=== PATIENT | male | born 1980 | race Hispanic/Latino ===

== ENCOUNTER 2019-01-08 06:39 | Outpatient (CLI) | payer OTHER ==
--- NOTE | 2019-01-08 07:48 | ULT ---
GALLBLADDER ULTRASOUND: HISTORY: Right upper quadrant pain. FINDINGS: Real-time imaging of the right upper quadrant demonstrates some minimal sludge within the gallbladder . No stones. No gallbladder wall thickening. The common duct is in the 6-7 mm range. No intrahepa tic ductal dilatation seen. Visualized liver parenchyma shows no focal findings. The right kidney i s normal in size and not obstructed. IMPRESSION: Minimal gallbladder sludge with a borderline-size common duct. POS: [facility]
== END 2019-01-08 06:40 | disposition home or self-care (01) ==
LOC: BICULT 06:39
PROVIDERS: ATTEND Family Medicine
DX: K82.8 Other specified diseases of gallbladder (principal); R10.13 Epigastric pain
CPT/HCPCS: 76705

== ENCOUNTER 2025-06-18 16:05 | Emergency (ER) | payer SELFPAY ==
[~2025-06-18 16:05] MED LIST: Iopamidol-370 76% 500 ML MDV (1 ML CHARGE) ONE
[2025-06-18 19:38] LABS: #Basophils 0.03 10x3/uL (0.0-0.2); #Eosinophils 0.08 10x3/uL (0.0-0.7); #Monocytes 0.81 10x3/uL (0.11-0.59); #Neutrophils 5.99 10x3/uL (1.40-6.50); %Basophils 0.3 % (0.0-1.0); %Eosinophils 0.9 % (0.0-10.0); %Lymphocytes 22.3 % (21.0-51.0); %Monocytes 9.1 % (0.0-10.0); %Neutrophils 67.2 % (42.0-75.0); Hematocrit 44.8 % (42.0-52.0); Hemoglobin 14.6 g/dL (14.0-18.0); Mean Corpuscular Hemoglobin 28.2 pg (27.0-31.0); Mean Corpuscular Volume 86.5 fL (78.0-98.0); Platelet Count 262 10x3/uL (130-400); Red Blood Cell (RBC) Count 5.18 mill/uL (4.70-6.10); White Blood Cell (WBC) Count 8.92 10x3/uL (4.8-10.8)
[2025-06-18 19:55] LABS: Albumin 3.8 g/dL (3.1-4.5); Anion Gap 18 mmol/L (10-20); BUN (Urea Nitrogen) 11 mg/dL (8.9-20.6); Bilirubin, Total 0.6 mg/dL (0.3-1.2); Calc. Creatinine Clearance 0 mL/min (70-130); Calcium 9.1 mg/dL (7.8-10.44); Carbon Dioxide 23 mmol/L (22-29); Chloride 106 mmol/L (98-107); Globulin 3.1 g/dL (2.4-3.5); Glucose 106 mg/dL (70-105); Potassium 3.7 mmol/L (3.5-5.1); Sodium 143 mmol/L (136-145)
[2025-06-18 19:56] LABS: ALT (SGPT) 124 U/L (Less than 45); AST (SGOT) 74 U/L (11-34); Alkaline Phosphatase 181 U/L (40-110)
[2025-06-18 19:57] LABS: ALT (SGPT) 125 U/L (Less than 45); AST (SGOT) 76 U/L (11-34); Albumin 3.8 g/dL (3.1-4.5); Alkaline Phosphatase 181 U/L (40-110); Anion Gap 17 mmol/L (10-20); BUN (Urea Nitrogen) 11 mg/dL (8.9-20.6); Bilirubin, Total 0.6 mg/dL (0.3-1.2); Calc. Creatinine Clearance 0 mL/min (70-130); Calcium 9.2 mg/dL (7.8-10.44); Carbon Dioxide 23 mmol/L (22-29); Chloride 106 mmol/L (98-107); Globulin 3.1 g/dL (2.4-3.5); Glucose 108 mg/dL (70-105); Lipase 32 U/L (8-78); Potassium 3.9 mmol/L (3.5-5.1); Sodium 142 mmol/L (136-145)
== END 2025-06-18 21:49 | disposition home or self-care (01) ==
LOC: ERS 16:05
DX: J18.9 Pneumonia, unspecified organism (principal)
CPT/HCPCS: 71045; 71275; 80053; 83690; 84484; 85379; 87428; 93005; Q9967